=== PATIENT | female | born 1990 | race Caucasian/White ===

== ENCOUNTER 2018-07-11 04:09 | Inpatient (IN) | payer BC ==
[2018-07-11] MEDS ORDERED: Acetaminophen TAB* 325 MG PO ONE (05:00)
[2018-07-11] MEDS ORDERED: Dinoprostone* 10 MG VAG.SUPP VAGINAL ONE (09:22)
--- NOTE | 2018-07-11 09:30 | HP ---
General Information - Reason for Visit PPROM - General Information Maternal Age: 28 Grav: 4 Para: 2 SAB: 1 IEA: 0 Estimated Due Date: 08/06/18 Determined By: LMP Maternal Blood Type and Rh: O Negative - Results this Serology/RPR Result: Non-Reactive Rubella Result: Immune HBsAg Result: Negative HIV Result: Negative GBS Culture Result: Negative Past Medical History Delivery History: Hx Uncomplicated Vaginal Delivery Pertinent Past Medical History: See Records - hx migraines, hx gestational hyptertension Pertinent Past Surgical History: None Pertinent Family History: See Records - CVD Review of Systems Constitutional: Comfortable CV Complaint: No Respiratory: Shortness of Breath: No Gastrointestinal: No Nausea/Vomiting, Normal Bowel Movement Genitourinary: Leaking Fluid, No Dysuria, No Bleeding Musculoskeletal: No Complaint Neurological: No Visual Changes, Headache Movement: Normal Exam Allergies/Adverse Reactions: Allergies amoxicillin Allergy (Verified 07/11/18 05:31) Unknown Reaction Details T:98.4, P:114, R:18, BP: 137/99, O2:100 Lab Values - Entire Visit: Laboratory Tests 07/11/18 04:35 Vag Amniotic Fld Detect Positive - Measurements Height: 5 ft 7 in Weight: 254 lb Weight in lbs: 254.831099 Body Mass Index (BMI): 39.7 Pre- Weight: 254 lb Weight Gained This : 0 lbs and 0 ozs - Exam Breast: Breast Exam Deferred CVA: No CVA Tenderness Extremities: No Edema Heart: Normal Rhythm/Heart Sounds HEENT: No Significant Findings Lungs: Clear Bilaterally Rectal: Rectal Exam Deferred Reflexes: DTR 2+ Thyroid: No Thyromegaly - Abdominal Exam Abdomen Exam: Fundal Height Consistent with Dates - Ultrasound/Biophysical Profile Ultrasound Status: Not Done Targeted Exam Findings Estimated Weight: 7lbs 5oz Cervical Exam: 5cm Effacement: 50% Presenting Part: Vertex Membrane Status: Leaking Amniotic Fluid Evaluation: Gross Rupture, Positive ROM Plus Bleeding/Discharge: None EFM Findings - External Monitor Findings Baseline Heart Rate: 140 External Monitor Findings: Accelerations Present, No Pattern of Variable or Late Decelerations, Variability Moderate, Baseline Stable Contractions: Irregular, Mild, < 45 Seconds Assessment/Plan - Assessment 28 y.o. , PPROM, umbilical varix - Obstetrical Risk Factors Obstetrical Risk Factors: - Plan Plan: Cervical Ripening - Date/Time of Admission Date of Admission: 07/11/18 Time of Admission: 09:30
--- NOTE | 2018-07-11 16:48 | PN ---
Progress Note - Progress Note Date of Service: 07/11/18 Note: Pt reports irregular ctx and cramping, continued leaking of fluid and +FM. Cervidil in place. Plan to remove cervidil as scheduled and reevaluate in the AM or sooner PRN
[2018-07-11] MEDS ORDERED: Promethazine INJ(RESTRICTED)* 25 MG/ML 1 ML VIAL IM ONE (16:49)
[2018-07-11] MEDS ORDERED: Nalbuphine* 10 MG/ML 1 ML VIAL IM ONE (16:49)
[2018-07-11] MEDS: Acetaminophen TAB* 325 MG PO PRN (18:18)
[2018-07-12] MEDS ORDERED: Misoprostol TAB* 100 MCG PO ONE (09:12)
--- NOTE | 2018-07-12 09:16 | PN ---
Progress Note - Progress Note Date of Service: 07/12/18 SOAP: Subjective: [Pt rested well overnight, pt denies contractions, cramping or bloody show. Pt reports continued LOF.] Objective: [BP: 131/86, P:92, R:18, T:98.1, FHR: 130 bpm, +accels, -decels, moderate variability, no ctx. cervix: 2/50/-1] Assessment: [28 y.o. , 36w3d EGA, PPROM] Plan: [1) Misoprostol, reviewed risks versus benefits and questions answered to pt satisfaction. 2) Reevaluate in 4 hrs or sooner PRN]
[2018-07-12] MEDS ORDERED: Misoprostol TAB* 100 MCG ONE (09:17)
[2018-07-12] MEDS: Acetaminophen TAB* 325 MG PO PRN (11:26)
[2018-07-12] MEDS ORDERED: Lidocaine 1%* 5 ML VIAL ONE (16:08)
[2018-07-12] MEDS ORDERED: Dinoprostone* 10 MG VAG.SUPP VAGINAL ONE (17:03)
[2018-07-12] MEDS ORDERED: Nalbuphine* 10 MG/ML 1 ML VIAL IV PRN (17:08)
[2018-07-12] MEDS ORDERED: Promethazine INJ(RESTRICTED)* 25 MG/ML 1 ML VIAL IV PRN (17:08)
[2018-07-12 17:25] LABS: ABS Basophils 0 10^3/ul (0-0.2); ABS Eosinophils 0.1 10^3/ul (0-0.6); ABS Monocytes 0.8 10^3/ul (0-0.8); ABS Neutrophils 10.4 10^3/ul (1.5-7.7); ABS Nucleated RBC 0 10^3/ul; Hematocrit 34 % (35-47); Hemoglobin 11.3 g/dl (12.0-16.0); Mean Corpuscular HGB Conc 33 g/dl (31-36); Mean Corpuscular Hemoglobin 27 pg (27-31); Mean Corpuscular Volume 82 fL (80-97); Mean Platelet Volume 9.5 fL (7.4-10.4); Nucleated Red Blood Cells % 0; Platelet Count 255 10^3/ul (150-450); Red Cell Distribution Width 14 % (10.5-15); White Blood Count 13.4 10^3/ul (3.5-10.8)
--- NOTE | 2018-07-12 17:37 | PN ---
Progress Note - Progress Note Date of Service: 07/12/18 SOAP: Subjective: [Pt reports irregular contractions that are mild. Pt expresses understanding of risks versus benefits of expectant mgmt vs. continued induction of labor and desires to continue with cervical ripening.] Objective: [BP:143/94, P:108, T:97.9, cervix: 3/70/-2 FHT: 145 bpm, + accels, -decels, moderate variability, ctx q 5-10 min mild to palpation] Assessment: [28 y.o. , PPROM] Plan: [1) Consulted with Dr Whittington who advised expectant mgmt until 37 weeks or IOL with onset of infection or new risk factors 2) Reviewed ACOG and [employer] recommendations regarding expectant mgmt until 37 weeks versus IOL and risks including respiratory distress and infection. Pt elects to continue with Cervidil overnight and therapeutic rest and reevaluate in the AM or sooner PRN]
[2018-07-12] MEDS ORDERED: OBEPIDURAL* 250 ML EPIDURAL ONE (20:53)
--- NOTE | 2018-07-12 21:31 | PN ---
Progress Note - Progress Note Date of Service: 07/12/18 SOAP: Subjective: [Pt constance regularly reporting increase in pressure, coping well but requests epidural.] Objective: [BP:130/77, P:102, cervix: 7.5/80/-1, FHT: 150bpm, +accels, -decels, moderate variability. ] Assessment: [28 y.o. , 36w3d EGA, Cat I NST] Plan: [1) Anesthesia consult for epidural 2) Anticipate vaginal delivery]
[2018-07-12] MEDS ORDERED: Lactated Ringers 1000 ML Bag* 1,000 ML IV ONE ×2 (21:35→21:55)
[2018-07-12] MEDS ORDERED: Famotidine TAB* 20 MG PO PRN (21:55)
[2018-07-12] MEDS ORDERED: Sodium Citrate/Citric Acid* 15 ML UDC PO PRN (21:55)
[2018-07-12] MEDS ORDERED: Phenylephrine IV* 40 MCG/ML 10 ML SYRINGE IV PUSH PRN (21:55)
[2018-07-12] MEDS ORDERED: Lactated Ringers 1000 ML Bag* 1,000 ML IV SCH ×3 (22:00→23:00)
[2018-07-12] MEDS ORDERED: OBEPIDURAL* 250 ML EPIDURAL SCH (22:00)
[2018-07-12] MEDS ORDERED: Oxytocin in LR* 20 UNITS/1,000 ML BAG IVPB ONE (22:03)
[2018-07-12] MEDS ORDERED: Dibucaine 1% 28.35 GM TUBE PR PRN (22:16)
[2018-07-12] MEDS ORDERED: Misoprostol TAB* 200 MCG PR ONE (22:16)
[2018-07-12] MEDS ORDERED: Glycerin ADULT SUPP PR PRN (22:16)
[2018-07-12] MEDS ORDERED: Witch Hazel PAD* JAR TOPICAL PRN (22:16)
--- NOTE | 2018-07-12 22:19 | PROCNOTE ---
[facility] OB: Delivery Note - Delivery A Date of : 07/12/18 Time of : 22:01 Sex: Male Score 1 Minute: 8 Score 5 Minutes: 9 Gestational Age in Weeks and Days at Delivery: 36 Weeks and 3 Days Delivery Method: Spontaneous Vaginal Labor: Spontaneous Amniotic Fluid: Clear Estimated Blood Loss: 250 Anesthesia/Analgesia: CEI for Labor Delivered By: Mariposa Mendez - Nursery Level of Nursery: Regular/Bedside - Perineum Perineal Injury: Abrasion Only - Not Repaired - Events Delivery Events of Note: Pitocin Only After Delivery, Post- Bleeding - Meds Given, ROM > 24 Hours - Additional Delivery Notes Additional Delivery Notes: nuchal cord x 1 delivered through the cord
[2018-07-12] MEDS ORDERED: Oxytocin in LR* 20 UNITS/1,000 ML BAG IVPB SCH (23:00)
[2018-07-13 07:04] LABS: Hematocrit 32 % (35-47); Hemoglobin 10.4 g/dl (12.0-16.0); Mean Corpuscular HGB Conc 33 g/dl (31-36); Mean Corpuscular Hemoglobin 27 pg (27-31); Mean Corpuscular Volume 81 fL (80-97); Mean Platelet Volume 8.7 fL (7.4-10.4); Platelet Count 254 10^3/ul (150-450); Red Blood Count 3.88 10^6/ul (4.00-5.40); Red Cell Distribution Width 14 % (10.5-15); White Blood Count 18.5 10^3/ul (3.5-10.8)
[2018-07-13 07:37] LABS: ABS Basophils 0.1 10^3/ul (0-0.2); ABS Eosinophils 0.1 10^3/ul (0-0.6); ABS Lymphocytes 2.5 10^3/ul (1.0-4.8); ABS Monocytes 1.6 10^3/ul (0-0.8); ABS Neutrophils 14.1 10^3/ul (1.5-7.7); ABS Nucleated RBC 0 10^3/ul; Eosinophil % 0.6 %; Lymphocyte % 13.7 %; Nucleated Red Blood Cells % 0
[2018-07-13] MEDS ORDERED: Simethicone TAB* 80 MG TAB.CHEW PO SCH (08:30)
[2018-07-13] MEDS ORDERED: Ferrous Gluconate TAB* 324 MG TAB PO SCH (09:00)
[2018-07-13] MEDS: Docusate CAP* 100 MG PO SCH ×3 (09:00→20:34)
[2018-07-13] MEDS: Ibuprofen TAB* 600 MG PO PRN ×2 (10:40→17:00)
[2018-07-13] MEDS: Acetaminophen TAB* 325 MG PO PRN ×2 (14:49→20:35)
[2018-07-13] MEDS ORDERED: diPHENhydraMINE PO* 50 MG PO ONE (20:38)
[2018-07-14] MEDS: Acetaminophen TAB* 325 MG PO PRN ×2 (04:42→09:28)
[2018-07-14] MEDS: Docusate CAP* 100 MG PO SCH (08:08)
[2018-07-14 08:16] VITALS: BP 143/99
== END 2018-07-14 14:42 | disposition home or self-care (01) | DRG 560 ==
LOC: MCHOBOUT 04:09 → MCHOB 05:16
PROVIDERS: ADMIT Midwife; ATTEND Midwife
PROC: 10E0XZZ Delivery of Products of Conception, External Approach (ICD-10-PCS; principal; 2018-07-11)
PROC: 4A1HXCZ Monitoring of Products of Conception, Cardiac Rate, External Approach (ICD-10-PCS; 2018-07-11)
PROC: 3E0P7VZ Introduction of Hormone into Female Reproductive, Via Natural or Artificial Opening (ICD-10-PCS; 2018-07-11)
DX: O42.113 Preterm premature rupture of membranes, onset of labor more than 24 hours following rupture, third trimester (principal); O72.1 Other immediate postpartum hemorrhage; Z37.0 Single live birth; O69.81X0 Labor and delivery complicated by cord around neck, without compression, not applicable or unspecified; O99.284 Endocrine, nutritional and metabolic diseases complicating childbirth; O69.89X0 Labor and delivery complicated by other cord complications, not applicable or unspecified; E28.2 Polycystic ovarian syndrome; O71.82 Other specified trauma to perineum and vulva; Z3A.36 36 weeks gestation of pregnancy; Z88.0 Allergy status to penicillin
CPT/HCPCS: 36415; 84112; 85025; 86850; 86870; 86880; 86900; 86901; A9270-GY; J2300; J2550; S0191